=== PATIENT | female | born 1960 | race Caucasian/White ===

== ENCOUNTER 2023-11-04 06:17 | Day surgery (SDC) | payer MEDICARE, SELFPAY ==
[2023-10-16 08:38] VITALS: BMI 33.5
[2023-10-16 09:17] LABS: % Basophils 1.1 % (0-2); % Eosinophils 3.4 % (0-6); % Immature Granulocytes 0.4 % (0-0.5); % Lymphocytes 13.3 % (20.5-51.1); % Monocytes 8.5 % (1.7-9.3); % Neutrophils 73.3 % (42.2-75.2); Absolute Basophils 0.1 10^3/uL (0-0.2); Absolute Eosinophils 0.3 10^3/uL (0-0.7); Absolute Lymphocytes 1.1 10^3/uL (1.2-3.4); Absolute Monocytes 0.7 10^3/uL (0.1-0.6); Hematocrit 38.2 % (37.0-47.0); Hemoglobin 12.6 g/dL (12.0-16.0); Mean Corpuscular Hgb 32.1 pg (27.0-31.0); Mean Corpuscular Volume 97.4 fL (81.0-99.0); Mean Platelet Volume 10.1 fL (7.4-10.4); Nucleated Red Blood Cells % 0 %; Platelet Count 307 10^3/uL (130-400); Red Blood Cell Count 3.92 10^6/uL (4.20-5.40); White Blood Cell Count 8.1 10^3/uL (4.8-10.8)
[2023-10-16 09:31] LABS: INR 2.81; PT 29.5 Sec (11.4-14.6)
[2023-10-16 09:43] LABS: ALT (SGPT) 30 U/L (0-35); AST (SGOT) 43 U/L (14-36); Albumin 4.6 g/dl (3.5-5.0); Alkaline Phosphatase 105 U/L (38-126); Blood Urea Nitrogen 12 mg/dl (7-17); Calcium 9.9 mg/dl (8.4-10.2); Carbon Dioxide 26 mmol/L (22-30); Chloride 103 mmol/L (98-107); Estimated Creatinine Clearance 93 ml/min; Glucose 96 mg/dl (70-99); Magnesium 2.1 mg/dl (1.6-2.3); Potassium 4.4 mmol/L (3.5-5.1); Sodium 138 mmol/L (135-145); Total Bilirubin 0.7 mg/dl (0.2-1.3); eGFR > 60.00
[2023-11-04 06:30] VITALS: BMI 33.0
[2023-11-04 07:08] VITALS: BP 153/92
[2023-11-04 07:12] LABS: PT 25.1 Sec (11.4-14.6)
--- NOTE | 2023-11-04 08:47 | ITS.CL.PACE ---
[employer] - Pacemaker Implant
Pacemaker Implant
Procedure Report:
Date of Procedure: November 04, 2023
Patient : 1960
Procedure: Pacemaker Implantation.
Indication: Generator at [facility] and a pacemaker dependent patient
Implants:
Pulse Generator: Medtronic; Model# W1 DR ; SN: [id number] implanted today
RA Lead: Medtronic; Model# 5076; SN: [id number] implanted 2014
RV Lead: Medtronic; Model# 5076; SN: [id number] implanted 2014
Explanted generator:
Medtronic product number A2 DR serial number [id number] implanted 2014
Technique: A time out was performed. The procedure site was identified. The patient was anesthetized by the anesthesia service. Preoperative sedation was administered. The patient was prepped and draped in the usual fashion. Local anesthetic was
applied to the right prepectoral subcutaneous tissue. A 3 inch incision was made 2.5 inches below the right clavicle. A subcutaneous pocket was created with blunt and sharp dissection and hemostasis controlled with Bovie cautery. The chronic
generator was removed from the field and the new generator was brought to the field. There was no underlying ventricular rhythm with ventricular pacing when connected to the new generator. The leads were appropriately attached to the device. The
pocket was irrigated with antibiotic solution. The device and leads were placed in the pocket. The incision was closed in three layers with absorbable suture. The estimated blood loss was minimal. There were no complications.
Lead Analysis:
RA lead: P: 0.9 mV; Threshold: In atrial flutter; Impedance: 494 ohms.
RV lead: R: 0 mV; Threshold: 0.75 V @ 0.5 ms; Impedance: 532 ohms.
Final Programming: DDDR 60-130 beats a minute
Conclusion: Uncomplicated Medtronic generator change
Recommendation: Routine post pacemaker care. Resume warfarin
[2023-11-04 08:56] VITALS: BP 131/80
[2023-11-04 09:11] VITALS: BP 136/79
[2023-11-04 09:26] VITALS: BP 135/81
[2023-11-04 09:41] VITALS: BP 135/78
[2023-11-04 09:56] VITALS: BP 127/72
== END 2023-11-04 10:15 | disposition home or self-care (01) ==
LOC: CATH 06:17
PROVIDERS: ATTENDING PHYSICIAN Internal Medicine Cardiovascular Disease; FAMILY PHYSICIAN Family Medicine; OTHER PHYSICIAN Internal Medicine Cardiovascular Disease
DX: Z45.010 Encounter for checking and testing of cardiac pacemaker pulse generator [battery] (principal); I44.2 Atrioventricular block, complete; I48.91 Unspecified atrial fibrillation; Z86.19 Personal history of other infectious and parasitic diseases; I48.0 Paroxysmal atrial fibrillation; E03.9 Hypothyroidism, unspecified; F32.A Depression, unspecified; F41.9 Anxiety disorder, unspecified; E53.8 Deficiency of other specified B group vitamins; Z87.891 Personal history of nicotine dependence; Z79.890 Hormone replacement therapy
CPT/HCPCS: 33228; 80053; 83735; 85025; 85610; 93005; C1785

== ENCOUNTER 2023-11-21 20:46 | Observation (INO) | payer MEDICARE, SELFPAY ==
[2023-11-21] VITALS (8 sets, daily range): BP systolic 123–180; BP diastolic 71–104; BMI 32.1
[2023-11-21 16:45] LABS: % Basophils 1.2 % (0-2); % Eosinophils 2.9 % (0-6); % Immature Granulocytes 0.2 % (0-0.5); % Lymphocytes 14.1 % (20.5-51.1); % Monocytes 9.4 % (1.7-9.3); % Neutrophils 72.2 % (42.2-75.2); Absolute Basophils 0.1 10^3/uL (0-0.2); Absolute Eosinophils 0.2 10^3/uL (0-0.7); Absolute Lymphocytes 1.2 10^3/uL (1.2-3.4); Absolute Monocytes 0.8 10^3/uL (0.1-0.6); Hematocrit 36.7 % (37.0-47.0); Hemoglobin 12.7 g/dL (12.0-16.0); Mean Corp Hgb Conc. 34.6 g/dL (33.0-37.0); Mean Corpuscular Hgb 31.8 pg (27.0-31.0); Mean Corpuscular Volume 91.8 fL (81.0-99.0); Mean Platelet Volume 9.7 fL (7.4-10.4); Nucleated Red Blood Cells % 0 %; Platelet Count 280 10^3/uL (130-400); Red Cell Dist. Width 12.8 % (11.5-14.5); White Blood Cell Count 8.4 10^3/uL (4.8-10.8)
[2023-11-21 16:56] LABS: INR 2.45; PT 26.5 Sec (11.4-14.6)
[2023-11-21 16:57] LABS: APTT 45.5 Sec (23.4-35.0)
[2023-11-21 17:09] LABS: Troponin I < 0.012 ng/ml
[2023-11-21 17:24] LABS: ALT (SGPT) 34 U/L (0-35); AST (SGOT) 50 U/L (14-36); Albumin 4.6 g/dl (3.5-5.0); Alkaline Phosphatase 103 U/L (38-126); Blood Urea Nitrogen 11 mg/dl (7-17); Calcium 10.1 mg/dl (8.4-10.2); Carbon Dioxide 28 mmol/L (22-30); Chloride 99 mmol/L (98-107); Glucose 109 mg/dl (70-99); Potassium 5.7 mmol/L (3.5-5.1); Sodium 133 mmol/L (135-145); Total Bilirubin 0.7 mg/dl (0.2-1.3); Total Protein 7.6 g/dl (6.3-8.2); eGFR > 60.00
--- NOTE | 2023-11-21 17:51 | ED.GENMED ---
History of Present Illness
General
Chief Complaint: Dizziness
Source: patient
Exam Limitations: none
Time Seen by Provider: 11/21/23 17:03
History of Present Illness
History of Present Illness:
63-year-old female was sitting with sudden onset of lightheadedness disequilibrium/vertigo. This is significantly improved. Started an hour prior to ER arrival. No headache no visual issues no other neurologic symptoms except for some tingling of
her lips and teeth. Also some minimal tingling to the left arm. No weakness. No chest pain or short of breath.
Past History
Past History
ED Past Medical History: Arrthythmia, Valvular disease, Hypothyroidism and Other (Rheumatic heart disease)
ED Past Surgical History: Cardiac (Valve replaced X2 and one repaired, Pacemaker) and (X2)
Social History
Tobacco: Former smoker
Alcohol: Occasional
Personal:
Living: with family
Employment: Employed
Review of Systems
Review of Systems
All Other Systems: Not applicable
Constitutional: Reports no symptoms
Respiratory: Reports no symptoms
Cardiac: Reports no symptoms
Phy Exam
Physical Exam
Physical Exam:
GENERAL: Alert and oriented in no apparent distress
EYE: Orbits normal.
NECK: Supple, no carotid bruit
ENT: Pharynx without erythema
CARDIAC: Regular rate and rhythm with mechanical valve murmur
LUNGS: Clear breath sounds,normal
ABDOMEN: Soft, without focal tenderness or distention
NEUROLOGICAL: Alert and oriented , cranial nerves II through XII intact. Speech normal. Axicsb-br-kime normal. Light touch intact. No extension. Gait normal. Negative Romberg. Tapy-bx-wcwv normal.
SKIN: Warm and dry, no rash or lesion, no discoloration, skin intact.
MUSCULOSKELETAL: No edema,no deformity.Good color
PSYCH: Normal and appropriate interaction.
Course
Orders/Labs/Results
Orders:
Orders
11/21/23 16:35
Electrocardiogram (*1) Urgent
Reason for Study: Fatigue / Weakness
11/21/23 16:36
EKG- Treatment ONCE
11/21/23 16:40
CMP [Comprehensive Metabolic Panel] Urgent
Complete Blood Count/With Diff Urgent
PT/INR [Prothrombin Time] Urgent
PTT Urgent
Troponin I Urgent
11/21/23 17:13
Electrocardiogram (*1) Stat
Reason for Study: Other
Other Reason for Exam: neuro symptoms
CT Head W/o Iv Contrast Urgent
Comment:
Reason For Exam: Dizziness. Anticoagulated
Cardiac Monitoring- Treatment ONCE
EKG- Treatment ONCE
IV Insert/Care/Rem.- Treatment PRN
Pulse Ox/cont/shift [RESP] Stat
Quantity: 1
11/21/23 19:13
Potassium Urgent
11/21/23 20:02
Sodium Bicarbonate 50 meq IV NOW STA
11/21/23 20:07
Dextrose 50%-Water [Dextrose 50% Syringe] 12.5 grams IV [id number] PRN
Dextrose 50%-Water [Dextrose 50% Syringe] 25 grams IV NOW STA
Dextrose 50%-Water [Dextrose 50% Syringe] 25 grams IV NOW STA
Furosemide [Lasix] 40 mg IV NOW STA
Insulin Human Regular [Novolin R] 5 units IV NOW STA
11/21/23 22:38
Potassium Urgent
Comment: draw 2 hours after regular insulin IV administration
Abnormal Lab Results
11/21/23 11/21/23
16:40 19:13
RBC 4.00 L 10^6/uL
(4.20-5.40)
Hct 36.7 L %
(37.0-47.0)
MCH 31.8 H pg
(27.0-31.0)
Absolute Monos (auto) 0.8 H 10^3/uL
(0.1-0.6)
Lymphocytes % 14.1 L %
(20.5-51.1)
Monocytes % 9.4 H %
(1.7-9.3)
PT 26.5 H Sec
(11.4-14.6)
APTT 45.5 H Sec
(23.4-35.0)
Sodium 133 L mmol/L
(135-145)
Potassium 5.7 H mmol/L 5.9 H mmol/L
(3.5-5.1) (3.5-5.1)
Glucose 109 H mg/dl
(70-99)
AST 50 H U/L
(14-36)
11/21/23 16:40
Vital Signs
Initial and Last Documented VS:
Initial Vital Signs
Temp Pulse Resp BP Pulse Ox
97.6 F 72 18 180/104 99
11/21/23 16:29 11/21/23 16:29 11/21/23 16:29 11/21/23 16:29 11/21/23 16:29
Last Documented Vital Signs
Temp Pulse Resp BP Pulse Ox
97.6 F 70 16 164/91 96
11/21/23 16:29 11/21/23 20:00 11/21/23 20:00 11/21/23 19:00 11/21/23 20:00
MDM/Problems Addressed
Differential Diagnosis Includes:
Near syncope versus a disequilibrium/vertigo episode. This differential would include inner ear versus central. Patient does have 2 mechanical valves but is faithful with her Coumadin and has had therapeutic INR's. Her neurologic exam is
perfectly normal. Workup in progress. Doubt syncope or near syncope. We will interrogate her pacer
*Pulse Oximetry
Patient hypoxic: no
*EKG
Interpreted by ED Provider?: Yes
Interpretation: abnormal
Comparison EKG: no changes
Heart Rate: 71
Rate: normal
Rhythm: other (Atrial sensed/ventricular paced)
*Critical Care Note
Total Time (30-74mins, 75-104mins- exclusive of procedures): Not Applicable
Data Reviewed
Review of Other/Old Records Reveals: Labs, Records and Testing
Update Note
Update Note:
Interrogation of pacer showed normal ventricular functioning. Underlying atrial fibrillation. No arrhythmias no malfunctioning. Hyperkalemia. Will give bicarb insulin Lasix. Discussed with hospitalist and nephrology
ED Attending Note
-
Portions of this chart may have been created with voice recognition software.� Occasional wrong word or��sound alike� substitutions may have occurred due to the inherent limitations of voice recognition software.
Discharge Plan
Departure
Patient Disposition: Admit
Date of Disposition: 11/21/23
Time of Disposition: 20:09
Presentation/result/management discussed w/ accepting MD/DO: Nephrology
Discharge Problem:
Disequilibrium/paresthesias, Hyperkalemia
Prescriptions:
No Action
carvedilol 3.125 mg Tablet
3.125 mg PO BID
levothyroxine [Synthroid] 75 mcg Tablet
75 mcg PO DAILY
ferrous sulfate 325 mg (65 mg iron) Tablet
325 mg PO DAILY
warfarin 5 mg Tablet
5 mg PO 2000
warfarin 1 mg Tablet
1 mg PO 2000
mecobalamin (vitamin B12) [B12 Active] 1,000 mcg Tablet,Chewable
1,000 mcg PO DAILY
sertraline 100 mg Tablet
100 mg PO DAILY
Referrals:
Maynor Wood MD [Family Provider] -
Interventions
Interventions:
*Risk Screen - Suicide Last Done: 11/21/23 20:11
*General Assessment Last Done: 11/21/23 20:11
*Neglect/Abuse Screening Last Done: 11/21/23 20:11
*ED COVID-19 Vaccine History Last Done: 11/21/23 20:11
ED- Neurological Assessment Last Done: 11/21/23 17:29
ED Swallowing Screen Last Done: 11/21/23 17:20
Discharge Date and Time
Print Language: SWEDISH
[2023-11-21 19:57] LABS: Potassium 5.9 mmol/L (3.5-5.1)
--- NOTE | 2023-11-21 20:29 | HPS.HSE ---
Family Physician
-
Family Physician: Maynor Wood
Chief Complaint
-
acute onset of dizziness
History of Present Illness
63M HX mechanical medronic ATS MVR and mechanical AoVR with tricuspid ring , chr warfarin, HX Prx AF, CHB required dual chamber PPM. HTN seen at ER for evaluation of lightheadedness:
- abrupt onset while sitting and lasted about 60 mis
- described as sensation of loss balance / spinning objects when eyes are opening , need to close her eyes
- felt some minimal tingling to the left arm. No weakness.
- also with circumoral tingling sensation but resolved at ER
- spouse noted both eye are distorted but denied diplopia , MAR
- denied hearing loss , tinnitus
- denied CP and SoB
- no prior HX CVA/TIA
- INR 2.4 at ER, was 2.9 yesterday
- SBP 180 at ER
Medical History
Past Medical History
Past Medical History: Reports Other
Additional Past Medical History:
1. Complete heart block status post dual-chamber permanent
pacemaker.
2. Paroxysmal atrial fibrillation.
3. Hypertension.
4. Rheumatic fever.
5. Medtronic ATS mitral and aortic valve replacement with tricuspid
ring.
6. Hypothyroidism.
7. Depression, anxiety.
8. Iron and B12 deficiency.
9. Remote tobacco abuse.
Past Surgical History: Reports Other
Additional Past Surgical History:
1. Mechanical mitral and aortic valve with tricuspid ring maze procedure 2010.
2. Dual-chamber permanent pacemaker
3. section,
4. mitral valvuloplasty 1997.
Social History
Tobacco: Former Smoker (since 1996 )
Alcohol: Occasional
Family History
Family History: Not pertinent
Allergies / Home Medications
Allergies reflects when Allergies were last updated in [facility].
Home Medications with original date entered in [facility]
Allergy/Medication List:
Allergies
Allergy/AdvReac Type Severity Reaction Status Date / Time
No Known Allergies Allergy Verified 11/04/23 06:32
Home Medications
carvedilol 3.125 mg tablet 3.125 mg PO BID 10/12/23
ferrous sulfate 325 mg (65 mg iron) tablet 325 mg PO DAILY 10/12/23
levothyroxine 75 mcg tablet (Synthroid) 75 mcg PO DAILY 10/12/23
mecobalamin (vitamin B12) 1,000 mcg chewable tablet (B12 Active) 1,000 mcg PO DAILY 10/12/23
warfarin 1 mg tablet 1 mg PO 199910/12/23
warfarin 5 mg tablet 5 mg PO 199910/12/23
sertraline 100 mg tablet 100 mg PO DAILY 11/04/23
Review of Systems
-
Constitutional: Reports No Symptoms
EENT: Reports No Symptoms
Respiratory: Reports No Symptoms
Cardiac: Reports No Symptoms
Abdomen/GI: Reports No Symptoms
: Reports No Symptoms
Musculoskeletal: Reports No Symptoms
Skin: Reports No Symptoms
Neurological: Reports See HPI, Dizzy and Numbness (LUx )
Endocrine: Reports No Symptoms
Hematologic/Lymphatic: Reports No Symptoms
Psych: Reports No Symptoms
Physical Exam
Vital Signs
Vital Signs
Temp Pulse Resp BP Pulse Ox
97.6 F 70 16 164/91 96
11/21/23 16:29 11/21/23 20:00 11/21/23 20:00 11/21/23 19:00 11/21/23 20:00
Physical Exam
General: Well Developed, Well Nourished and No Apparent Distress
HEENT: NormoCephalic, Moist mucous membranes, Atraumatic and Other (No nystagmus )
Respiratory: Clear
Cardiac: S1/S2, Regular Rhythm and Murmur ( mechanical valve ); No Rub
GI: Soft, Non Tender, Non Distended and Normal Bowel Sounds; No Organomegaly
Rectal: Deferred by Provider
Musculoskeletal: No Clubbing, No Cyanosis and No Edema
Skin: No Rash
Neuro: AO x 3, Nonfocal/grossly intact and Other (Alert and oriented , cranial nerves II through XII intact. Speech normal. Dtfulk-ak-oyqn normal. Light touch intact. No extension. Gait normal. Negative Romberg. Nlvz-sm-xvrj normal.)
Psych: Calm
Laboratory Results
-
11/21/23 16:40
Laboratory Results
PT 26.5 Sec (11.4-14.6) H 11/21/23 16:40
INR 2.45 11/21/23 16:40
APTT 45.5 Sec (23.4-35.0) H 11/21/23 16:40
Total Bilirubin 0.7 mg/dl (0.2-1.3) 11/21/23 16:40
AST 50 U/L (14-36) H 11/21/23 16:40
ALT 34 U/L (0-35) 11/21/23 16:40
Alkaline Phosphatase 103 U/L (38-126) 11/21/23 16:40
Troponin I < 0.012 ng/ml 11/21/23 16:40
Data Reviewed
-
Medical Tests (Nuc Med, Echo, EKG etc): Report Reviewed by me
Lab Data: Labs Reviewed by me
Old Records: Reviewed
Impression/Plan
-
Reviewed VS: BP 180/105 --> 165/88 HR 70
Data
Unremarkable CBC
INR 2.4
Na 133
K 5.9 - baseline mid 4s
Nl Cr and nl e GFR
BG 109
NEG TPNI
EKG report
Atrial-sensed ventricular-paced rhythm with prolonged AV conduction
ABNORMAL ECG
WHEN COMPARED WITH ECG OF 16-OCT-2023 08:54,
NO SIGNIFICANT CHANGE WAS FOUND
HCT
No acute intracranial abnormality noted.
05/30/22 ECHO
- LVEF 52%
- Diastolic function indeterminate.
- Normal right ventricular size and function
- S/P # 27 mm ATS mechanical mitral valve with peak/mean gradients across the mitral valve of 21/6 mmHg respectively. Trace mitral regurgitation
- S/P # 18 mm ATS mechanical aortic with valve peak/mean gradients across the aortic valve of 27/15 mmHg respectively. Trace aortic regurgitation.
- Estimated pulmonary artery pressure of 44-47 mmHg assuming a right atrial pressure of 5-8 mmHg.
Last hospitalist admission:
ASSESSMENT & PLAN
Pending Rx reconciliation
Abrupt onset of sense of transient dysequilibrium with minimal tingling to the left arm without focal motor weakness
Eval for TIA/ CVA DDX: Clinically picture is more like central origin than peripheral origin vs metabolic origin
- spontaneously resolved
- Non focal neuro exam
- Systolic HTN upon arrival
- fall precaution
- Rxtic INR on Coumadin
- NEG HCT
- Neuro consult
Acute Hyperkalemia of uncertain origin
Normal renal function
- agree with ER Hyperkalemia Tx
- Trend K in AM
- Renal consulted
Complete heart block status post dual-chamber permanent pacemaker.
- Per ER : Interrogation of pacer showed normal ventricular functioning. Underlying atrial fibrillation.
- No arrhythmias no malfunctioning.
Mechanical mitral and aortic valve with tricuspid ring maze procedure 2010.
Dual-chamber permanent pacemaker with underlying atrial fibrillation.
Paroxysmal atrial fibrillation
HX HX Rheumatic fever complicated by valvular heart dz
INR was 2.9 yesterday, 2.4 at ER
- cont carvedilol
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
- daily INR while IP - Goal 2.5 - 3.5
- DCA card consult
Systolic HTN on arrival ? anxious
Hypertension
- on carvedilol
Known HX: stable
Hypothyroidism: on LT4
Depression, anxiety; on sertraline
Iron and B12 deficiency.
Remote tobacco abuse.
DVT Px: on chr warfarin
Code: Full
Obs TLM
[2023-11-21] MEDS: SODIUM BICARBONATE 50 MEQ IV (20:37)
[2023-11-21] MEDS: NOVOLIN R 5 UNITS IV (20:43)
[2023-11-21] MEDS: DEXTROSE 50% SYRINGE 25 GRAMS IV (20:49)
[2023-11-21] MEDS: LASIX 40 MG IV (20:53)
[2023-11-21 21:14] LABS: Glucose - Point of Care 241 mg/dl (70-99)
[2023-11-21] MEDS: COUMADIN 6 MG PO (23:12)
[2023-11-21] MEDS: COREG 3.125 MG PO (23:12)
[2023-11-22] VITALS (7 sets, daily range): BP systolic 114–178; BP diastolic 64–88; PULSE 74
[2023-11-22 00:05] LABS: ALT (SGPT) 35 U/L (0-35); AST (SGOT) 51 U/L (14-36); Albumin 4.9 g/dl (3.5-5.0); Alkaline Phosphatase 93 U/L (38-126); Blood Urea Nitrogen 10 mg/dl (7-17); Carbon Dioxide 27 mmol/L (22-30); Chloride 100 mmol/L (98-107); Estimated Creatinine Clearance 95 ml/min; Glucose 96 mg/dl (70-99); Potassium 3.8 mmol/L (3.5-5.1); Sodium 138 mmol/L (135-145); eGFR > 60.00
--- NOTE | 2023-11-22 01:37 | PTCARENOTE ---
Pt received from [facility] able to make her needs known,pleasant & cooperative.NIH-0, Pt provided with a stroke packet. Plan of care continued.
[2023-11-22] MEDS: SYNTHROID 75 MCG PO (05:14)
[2023-11-22 05:32] LABS: Hematocrit 38.3 % (37.0-47.0); Hemoglobin 13.4 g/dL (12.0-16.0); Mean Corpuscular Hgb 32.4 pg (27.0-31.0); Mean Corpuscular Volume 92.5 fL (81.0-99.0); Mean Platelet Volume 9.9 fL (7.4-10.4); Platelet Count 277 10^3/uL (130-400); Red Blood Cell Count 4.14 10^6/uL (4.20-5.40); Red Cell Dist. Width 12.9 % (11.5-14.5); White Blood Cell Count 8.4 10^3/uL (4.8-10.8)
[2023-11-22 05:55] LABS: HDL Cholesterol 57 mg/dl; LDL Cholesterol, Calculated 129 mg/dl; Total Cholesterol 199 mg/dl (50-199); Triglyceride 66 mg/dl (10-149); Very Low Density Lipoprotein 13 mg/dl (0-30)
--- NOTE | 2023-11-22 08:27 | CON.NEURO4 ---
Consultation - Neurology 4
-
CONSULTING PHYSICIAN: Aurora Rico
REFERRING PHYSICIAN: Hospitalist
DICTATED BY: Aurora Rico
DATE/TIME OF REQUEST: 11/22/23
DATE/TIME OF CONSULTATION: 11/22/23
Reason for Consultation: Dizziness episode
History of Present Illness:
Patient is a 63-year-old woman with a past medical history of mechanical aortic and mitral valve replacements, paroxysmal atrial fibrillation, hypertension presented to hospital with around 1 hour of significant vertigo along with nausea and vision
changes.
Patient has been in her normal state of health the past several days and also yesterday morning she was out to eat in a restaurant yesterday evening and while sitting down had a sudden onset of significant vertiginous feeling along with nausea and
felt like her vision was possibly double. Her said that she seemed outwardly normal appearing with no facial asymmetry or unilateral weakness, patient did have impaired balance, nausea but no vomiting. Symptoms seem to resolve shortly
after getting to the ER.
Patient relates having had some episodes that were much short lasting of vertigo 1 around 1-1/2 months ago and some much more longer back on the order of several months to a year or 2 ago. The current episode was longer lasting.
Patient also relates a history of migraine visual aura kaleidoscope usually lasting 20 to 30 minutes and can feel very fatigued afterwards but generally does not get headaches with these.
Patient has been compliant with Coumadin. No history of overt TIA or stroke.
She denies any long-lasting or significant tinnitus or hearing loss. No recent head injuries.
Past Medical History: Heart block status post permanent pacemaker, paroxysmal atrial fibrillation, hypertension, former rheumatic fever, mechanical mitral and aortic valve replacements, migraine with visual aura, anxiety depression
Surgical History: , mitral valvuloplasty, mechanical mitral and aortic valve, permanent pacemaker
Family History: Reviewed and noncontributory
Social History: Patient is lives at home with her she is retired mostly but still works 2 days a week in [employer], quit smoking in 1996, social rare alcohol once or twice a week, no recreational drugs
Review of Symptoms:
Patient denies any fever, headache, chest pain, shortness of breath, GI or symptoms.
Physical Exam:
Well-appearing middle-aged woman no signs of distress no head or neck trauma eyes are clear oropharynx is clear neck supple full range of motion, heart rate regular, systolic murmur appreciated, breathing unlabored, abdomen soft nontender no lower
extremity edema
Neurologic Examination:
The patient is awake, alert and oriented x 3. She is able to follow commands and answer questions appropriately. There is no aphasia or dysarthria. On cranial nerve assessment, pupils are 3 mm bilateral, round and reactive to light and
accommodation. Visual lopez are full. Extraocular movements are intact. Facial sensations are intact and bilaterally symmetrical, there is no facial asymmetry. Hearing is intact bilaterally to normal conversation volume. Tongue palate and uvula
are midline. Sternocleidomastoid strengths are full bilaterally. Motor strengths are 5/5 bilateral upper and lower extremities on medical research [place] scale. There is no drift or involuntary movement noted. Deep tendon reflexes are 2+ bilateral
upper and lower extremities and Babinski is absent bilaterally. Sensations of pain, touch, temperature and vibration are intact and bilaterally symmetrical. There was no extinction noted on double simultaneous stimulation. Coordination is intact by
finger to nose bilaterally. Gait is normal.
[place] Hallpike negative
Neuro Imaging: CT head non contrast no acute abnormalities
CTA head and neck no significant atherosclerosis in vertebrobasilar system, no significant carotid stenosis, no intracranial stenosis or occlusions
Impressions
Approximately 1 hour or less of acute vestibular syndrome with significant vertigo, vision changes and imbalance. Patient greatly improved currently with no focal neurologic deficits and able to walk normally and, Carissa-Hallpike testing was negative
for me. Most likely diagnoses are either a prolonged episode of BPPV versus migraine aura causing dizziness. TIA would be on the differential diagnosis, however patient is roughly therapeutic with her INR and has no significant atherosclerosis in
the posterior circulation which is reassuring.
Recommendations:
1. Given the finding of significant atherosclerosis in the posterior circulation do not feel she would require statin medication
2. Continue Coumadin for therapeutic INR
3. Reassured patient that very good chance this is a benign etiology such as migraine aura versus BPPV
4. Mobilization
5. Do not feel patient would require brain MRI given she has returned to normal
6. No barriers to discharge from my standpoint
Discussed patient care with: Patient and Dr Hughes
[2023-11-22 09:34] LABS: INR 2.33; PT 25.5 Sec (11.4-14.6)
--- NOTE | 2023-11-22 09:53 | CON.CAR ---
Consultation
Consultation Request
Date/Time Consultation Requested: 11/22/23
Date/Time Consultation Performed: 11/22/23
Requesting Provider: Dr. Plaza
Performing Provider: Dr. Perry
Reason for Consultation: Dizziness episode
Medical History
-
Chief Complaint: Dizziness episode
History of Present Illness:
I had the pleasure to meet your patient, Evette Berger who is accompanied today by her Amadro for an episode of dizziness and vision changes as well as management of INR [target range 2.5�3.5 ]on Coumadin for history of mechanical and
mitral valve replacements. Loses well-known to my colleague, Dr. Pedroza as well as helicopter pilot instructor Dr. Antonio and Dr. Taveras. She is followed by [facility]. This has a history of rheumatic heart disease mechanical Medtronic ATS
aortic and mitral valve replacement and tricuspid valve annuloplasty in 2010 accompanied by surgical Maze procedure. She had a mitral valvuloplasty in 1997. She also has a history of paroxysmal atrial fibrillation and complete heart block status
post dual-chamber permanent pacemaker with recent generator change with Dr. Antonio on 11/04/2023. She also has a history of hypothyroidism on levothyroxine. She is a lifelong non-smoker. She does have a prior history of vertigo and ocular
migraines. She denies a history of stroke/TIA. She has no known coronary artery disease. She had been in her normal state of health until yesterday morning when she had a sudden onset of double vision and dizziness that improved when she closed
her eyes. She also had some facial paresthesias without facial asymmetry or drop. No speech difficulty. No headache or eye pain. No dysarthria or weakness. Symptoms resolved shortly after getting to the ER and have not recurred. Symptoms
lasted approximately an hour. She is currently asymptomatic and feeling back at baseline
Past medical history: history of rheumatic heart disease mechanical Medtronic ATS aortic and mitral valve replacement and tricuspid valve annuloplasty in 2010 accompanied by surgical Maze procedure. She had a mitral valvuloplasty in 1997. She also
has a history of paroxysmal atrial fibrillation and complete heart block status post dual-chamber permanent pacemaker with recent generator change with Dr. Antonio on 11/04/2023. She also has a history of hypothyroidism on levothyroxine. She is a
lifelong non-smoker. She does have a prior history of vertigo and ocular migraines. She denies a history of stroke/TIA.
Past Medical History
Past Medical History: Other (See HPI)
Past Surgical History: Other (Mitral valvuloplasty, mechanical mitral and aortic valve replacement and tricuspid valve annuloplasty. Pacemaker implant, recent generator change, )
Social History
Tobacco: Non-Smoker
Alcohol: None
Drug: None
Personal:
Living: With Family
Employment: Retired (Retired from [employer])
Family History
Family History: Reviewed & Not Pertinent
Allergies / Home Medications
Allergy/AdvReac Type Severity Reaction Status Date / Time
No Known Allergies Allergy Verified 11/04/23 06:32
�Medication �Instructions �Recorded �Confirmed �Type
carvedilol 3.125 mg tablet 3.125 mg PO BID 10/12/23 11/21/23 History
ferrous sulfate 325 mg (65 mg 325 mg PO DAILY 10/12/23 11/21/23 History
iron) tablet
levothyroxine 75 mcg tablet 75 mcg PO DAILY 10/12/23 11/21/23 History
(Synthroid)
mecobalamin (vitamin B12) 1,000 1,000 mcg PO DAILY 10/12/23 11/21/23 History
mcg chewable tablet (B12 Active)
warfarin 1 mg tablet 1 mg PO 199910/12/23 11/21/23 History
warfarin 5 mg tablet 5 mg PO 199910/12/23 11/21/23 History
sertraline 100 mg tablet 100 mg PO DAILY 11/04/23 11/21/23 History
Review of Systems
-
History Source: Patient
All other systems: Negative unless noted
Constitutional: No Symptoms
EENT: Other (Mild upper lip paresthesias without weakening which has resolved. Visual changes without loss of vision or pain that improved when closing eyes now resolved)
Respiratory: No Symptoms
Cardiac: No Symptoms
Abdomen/GI: No Symptoms
: No Symptoms
Musculoskeletal: No Symptoms
Skin: No Symptoms
Neurological: Dizzy
Endocrine: No Symptoms
Hematologic/Lymphatic: No Symptoms
Physical Exam
Vital Signs
Temp Pulse Resp BP Pulse Ox
97.8 F 72 18 143/83 97
11/22/23 07:05 11/22/23 07:05 11/22/23 07:05 11/22/23 07:05 11/22/23 07:05
Lab Results
11/22/23 05:05
11/21/23 23:34
Troponin I < 0.012 ng/ml 11/21/23 16:40
Physical Exam
General: Well Developed, Well Nourished, No Apparent Distress and Comfortable
HEENT: Normocephalic, Anicteric and Moist Mucous Membranes
Respiratory: Clear
Cardiac: S1/S2, Regular Rhythm, Murmur (Positive click of mMVR/AVR) and Other (Pacemaker site intact and healing well following generator change 11/04/2023); Negative Peripheral Edema or JVD
GI: Soft, Non Tender, Non Distended and Normal Bowel Sounds
Musculoskeletal: No Edema
Skin: Negative Rash
Neuro: AO x 3 and Nonfocal/Grossly Intact
Psych: Calm
Impression / Plan
-
Certified Nuclear Medicine Technologist: Dr. Pedroza
Impression:
Dizziness episode with vision changes suggestive of vertigo now resolved
Subtherapeutic INR on warfarin with goal INR 2.5�3.5
Prior history of vertigo
History of ocular migraines
History of rheumatic heart disease status mechanical Medtronic ATS aortic and mitral valve replacement and tricuspid valve annuloplasty in 2010 accompanied by surgical Maze procedure. She had a mitral valvuloplasty in 1997. History of paroxysmal
atrial fibrillation and complete heart block status post dual-chamber permanent pacemaker with recent generator change with Dr. Antonio on 11/04/2023.
History of hypothyroidism on levothyroxine.
-CT head: No acute intracranial abnormality. Sinuses free of disease
-CT head and neck angio 11/22/2023: No evidence of high-grade stenosis or occlusion. Mild atherosclerosis of bilateral carotid bifurcations without significant stenosis. Vertebral arteries are patent. Right vertebral artery is hypoplastic with
left being dominant. Aortic arch branch vessels are patent. Common origin of the left common carotid artery and right brachiocephalic artery, anatomic variant.
Plan:
Dizziness episode which has now resolved suggestive of vertigo versus ocular migraine
-Neurology consult reviewed no additional imaging or neurologic evaluation recommended
Mechanical mitral and aortic valves
-Last echocardiogram May 2022
-Would repeat 2D echocardiogram as an outpatient and will help arrange
-Continue warfarin therapy with target INR 2.5�3.5. Patient is slightly subtherapeutic but has mostly been in range when reviewed outpatient chart. She was given warfarin 8 mg today, usual outpatient dose is 6 mg. Repeat INR still slightly
subtherapeutic so we will have her take another 8 mg tomorrow and then defer to [facility]mad[facility] clinic
History of paroxysmal atrial fibrillation
-A sensed V paced rhythm on EKG
-Will check with office device clinic tomorrow for remote interrogation
History of complete heart block status post dual-chamber permanent pacemaker with recent generator change 11/04/2023
-Incision healing nicely
Stable from a cardiovascular standpoint for discharge
Will arrange outpatient cardiac follow-up
Data Reviewed
-
EKG: Report Reviewed by me
Radiology: Report Reviewed by me
CT Scan: Report Reviewed by me
Labs: Labs Reviewed by me
Old Records: Reviewed
[2023-11-22] MEDS: COREG 3.125 MG PO (10:15)
[2023-11-22] MEDS: FLUSH (NSS) 1 FLUSH IV (10:15)
--- NOTE | 2023-11-22 10:34 | W.PN.HOSP.TC ---
Today's Communication/Plan
-
see outlined plan
Assessment / Plan
Assessment / Plan
Assessment:
Acute hyperkalemia
- resolved with temporization and IV Lasix in ER
- normal this AM
- also normotension and normal renal function
- no clear underlying pathology suggested by history, labs or meds, reviewed with [facility]
- low K diet and repeat BMP in 1 week
Lightheadedness, numbness, tingling
Vertigo
- CT head negative
- CTA pending
- Neuro following
- has so far done well with PT/OT/ST, referred to OP Vestibular therapy
Complete heart block status post dual-chamber permanent pacemaker
Paroxysmal atrial fibrillation
Medtronic ATS mitral and aortic valve replacement with tricuspid ring
- INR 2.3
- takes Coumadin 6mg nightly, will give additional 2mg now and repeat INR at 5pm
- Cardiology following
Essential Hypertension
Hypothyroidism.
Depression, anxiety.
Iron and B12 deficiency.
Remote tobacco abuse.
DVT ppx: Coumadin
Code: Full
Anticipated Discharge: Within 24 hours
Subjective/Interval History
-
Date of Service: November 22, 2023
denies any new complaints currently
Objective Data
-
Labs:
Laboratory Results
11/21/23 11/21/23 11/22/23
23:03 23:34 05:05
WBC 8.4
Hgb 13.4
Hct 38.3
Plt Count 277
PT
INR
Sodium Cancelled 138
Potassium Cancelled 3.8 D
Chloride Cancelled 100
Carbon Dioxide Cancelled 27
BUN Cancelled 10
Creatinine Cancelled 0.5 L
Glucose Cancelled 96
Calcium Cancelled 10.0
Total Bilirubin Cancelled 1.0
AST Cancelled 51 H
ALT Cancelled 35
Alkaline Phosphatase Cancelled 93
11/22/23 11/22/23
09:13 16:00
WBC
Hgb
Hct
Plt Count
PT 25.5 H Pending
INR 2.33 Pending
Sodium
Potassium
Chloride
Carbon Dioxide
BUN
Creatinine
Glucose
Calcium
Total Bilirubin
AST
ALT
Alkaline Phosphatase
Vital Signs:
Vital Signs
Temp Pulse Resp BP Pulse Ox
97.8 F 74 18 123/58 97
11/22/23 07:05 11/22/23 10:15 11/22/23 07:05 11/22/23 10:15 11/22/23 07:05
I&O
11/21/23 11/22/23 11/23/23
06:59 06:59 06:59
Intake Total 480 / 480
Balance 480 / 480
Physical Exam
-
General: No Apparent Distress
HEENT: Normocephalic and Atraumatic
Respiratory: Negative Wheezes
Cardiac: Regular Rhythm and S1/S2
GI: Soft and Nontender
Genito-urinary: No Costovertebral Tender
Neuro: AO x 3
Hematologic / Lymphatic: No Lymphadenopathy
Psych: Calm
Data Reviewed
-
Total Time Spent with Patient (in minutes): 42
Labs: Labs Reviewed by me
--- NOTE | 2023-11-22 10:38 | PTOTSP ---
ST Acute Care Evaluation
Pt presents with oral, pharyngeal, and esophageal parameters that are WFL for all PO intake. No overt s/s of penetration or aspiration observed at bedside.
Recommendations:
- Continue with regular solids, thin liquids, meds as tolerated.
- General aspiration precautions.
- EXECUTIVE PASTRY CHEF to f/u to complete speech, language, and cognitive evaluation as able.
[2023-11-22] MEDS: COUMADIN 2 MG PO (11:09)
[2023-11-22] MEDS: ZOLOFT 100 MG PO (12:42)
--- NOTE | 2023-11-22 13:58 | CM ---
CM following re: d/c planning.
CM met with pt and spouse at bedside to complete IA.
Pt reside with spouse and son in private residence.
Pt reports she is independent with mobility and ALDs at baseline.
No DME or VN in the home.
PCP is Dr. Wood and pharmacy is [facility] in [place].
Per therapy, recs for outpatient vestibular therapy. Script in chart.
No additional d/c needs noted.
LIND provided and explained.
[2023-11-22 17:32] LABS: INR 2.36; PT 25.7 Sec (11.4-14.6)
--- NOTE | 2023-11-22 17:56 | W.DS.TRANS ---
DC Summary - Public Works Supervisor
-
Discharge Instructions:
Discharge Diagnosis/Procedures Vertigo
Diet Regular
Activity As tolerated
Bathing Restrictions None
Instructions:
Stand-Alone Forms:
Changes to Home Medications: No
Discharge Medications:
DC Medications w/original date entered in [employer]
carvedilol 3.125 mg tablet 3.125 mg PO BID 10/12/23
ferrous sulfate 325 mg (65 mg iron) tablet 325 mg PO DAILY 10/12/23
levothyroxine 75 mcg tablet (Synthroid) 75 mcg PO DAILY 10/12/23
mecobalamin (vitamin B12) 1,000 mcg chewable tablet (B12 Active) 1,000 mcg PO DAILY 10/12/23
warfarin 1 mg tablet 1 mg PO 199910/12/23
warfarin 5 mg tablet 5 mg PO 199910/12/23
sertraline 100 mg tablet 100 mg PO DAILY 11/04/23
Home Medication Changes
Pending Results: No
Total time spent discharging patient (in min): 41
[2023-11-22] MEDS: COUMADIN 1 MG PO (18:02)
[2023-11-22] MEDS: COUMADIN 5 MG PO (18:04)
== END 2023-11-22 18:45 | disposition home or self-care (01) ==
LOC: 4 EAST ACU 20:46
PROVIDERS: ADMITTING PHYSICIAN Internal Medicine; ATTENDING PHYSICIAN Internal Medicine; CONSULT PHYSICIAN Internal Medicine Cardiovascular Disease; CONSULT PHYSICIAN Student in an Organized Health Care Education/Training Program; EMERGENCY PHYSICIAN Emergency Medicine; FAMILY PHYSICIAN Family Medicine
DX: E87.5 Hyperkalemia (principal); R42 Dizziness and giddiness; I48.0 Paroxysmal atrial fibrillation; R20.2 Paresthesia of skin; E03.9 Hypothyroidism, unspecified; R53.83 Other fatigue; R53.1 Weakness; R29.818 Other symptoms and signs involving the nervous system; I10 Essential (primary) hypertension; R11.0 Nausea; R26.89 Other abnormalities of gait and mobility; I25.10 Atherosclerotic heart disease of native coronary artery without angina pectoris; I44.2 Atrioventricular block, complete; G43.109 Migraine with aura, not intractable, without status migrainosus; F32.A Depression, unspecified; F41.9 Anxiety disorder, unspecified; E53.8 Deficiency of other specified B group vitamins; Z79.4 Long term (current) use of insulin; Z95.0 Presence of cardiac pacemaker; Z79.01 Long term (current) use of anticoagulants; Z87.891 Personal history of nicotine dependence; Z95.2 Presence of prosthetic heart valve; Z79.890 Hormone replacement therapy
CPT/HCPCS: 70450; 70496; 70498; 80053; 80061; 82962; 84132; 84484; 85025; 85027; 85610; 85730; 92610; 93005; 94760; 96374; 96375; 97162; 97166; 99285; G0378; Q9967

== ENCOUNTER → 2023-12-09 07:55 | Outpatient (REF) | payer MEDICARE, SELFPAY | LOC: RAD 07:55 | PROVIDERS: ATTENDING PHYSICIAN Internal Medicine Gastroenterology; FAMILY PHYSICIAN Family Medicine | DX: R14.0 Abdominal distension (gaseous) (principal) | CPT/HCPCS: 74177; Q9967 ==

== ENCOUNTER 2023-12-15 06:14 | Day surgery (SDC) | payer MEDICARE, SELFPAY ==
[2023-12-15 10:00] VITALS: BMI 29.6
[2023-12-15 10:04] VITALS: BMI 29.6
[2023-12-15 10:11] VITALS: BP 162/87
[2023-12-15 11:34] VITALS: BP 113/72
[2023-12-15 11:45] VITALS: BP 122/110
[2023-12-15 12:00] VITALS: BP 129/108
[2023-12-15 12:02] VITALS: BP 139/84
== END 2023-12-15 12:15 | disposition home or self-care (01) ==
LOC: SDS 06:14
PROVIDERS: ATTENDING PHYSICIAN Internal Medicine Gastroenterology
DX: Z12.11 Encounter for screening for malignant neoplasm of colon (principal); K63.89 Other specified diseases of intestine; K29.50 Unspecified chronic gastritis without bleeding; K31.89 Other diseases of stomach and duodenum; K31.A0 Gastric intestinal metaplasia, unspecified; R14.0 Abdominal distension (gaseous); R10.13 Epigastric pain; Z80.0 Family history of malignant neoplasm of digestive organs
CPT/HCPCS: 45380; 43239; 88305; 88341; 88342

== ENCOUNTER → 2024-06-06 15:33 | Outpatient (REF) | payer MEDICARE, SELFPAY | LOC: WDC 15:33 | PROVIDERS: ATTENDING PHYSICIAN Obstetrics & Gynecology Gynecology; FAMILY PHYSICIAN Family Medicine | DX: Z12.31 Encounter for screening mammogram for malignant neoplasm of breast (principal) | CPT/HCPCS: 77063; 77067 ==

== ENCOUNTER → 2024-07-15 11:38 | Outpatient (REF) | payer MEDICARE, SELFPAY | LOC: RAD 11:38 | PROVIDERS: ATTENDING PHYSICIAN Family Medicine | DX: Z95.2 Presence of prosthetic heart valve (principal); I10 Essential (primary) hypertension; F41.9 Anxiety disorder, unspecified; E03.9 Hypothyroidism, unspecified; R05.1 Acute cough | CPT/HCPCS: 71046 ==

== ENCOUNTER → 2024-08-10 15:46 | Outpatient (REF) | payer MEDICARE, SELFPAY | LOC: RCS 15:46 | PROVIDERS: ATTENDING PHYSICIAN Internal Medicine Cardiovascular Disease; FAMILY PHYSICIAN Family Medicine | DX: R06.02 Shortness of breath (principal) | CPT/HCPCS: 93306 ==